=== PATIENT | male | born 1985 | race Caucasian/White ===

== ENCOUNTER 2023-11-09 14:07 | Outpatient (AMB) | payer MEDICARE, MEDICAID, SELFPAY ==
[2023-11-09 14:20] VITALS: BP 120/76; PULSE 88; TEMP 36.3; O2SAT 97; BMI 49.7
--- NOTE | 2023-11-09 14:20 | AM.OFFWIN_ITS ---
Intake Vital Signs 11/09/23 14:20 Height 5 ft 8 in Weight 148.325 kg BMI 49.7 BP 120/76 Blood Pressure Location Rt brachial Position Sitting Pulse 88 Pulse Source Pulse Oximeter Temp 97.3 F Pulse Oximetry (%) 97 Oxygen Delivery Method Room Air Intake Visit Reasons: [employer] WORK[employer]/cough and throwing up [phone] Intake Note: pt is here today for cough and throwing up started 4-5 days ago Allergies No Known Allergies Allergy (Verified 11/09/23 14:21) Do you need a note to return to daycare/school/sports/work: Yes HPI HPI Comments History of Present Illness Details 1455 38-year-old male hx of obesity who prese nts with fatigue, malaise, myalgias, cough, subjective fevers and chills that started 5 days ago not improving.+ sick contacts at home..? Denies chest pain, shortness of breath, nausea, vomiting, abdominal pain, headache vision change, dizziness, weakness, changes in bowel or urinary habits Physical exam benign History and physical exam concerning for viral illness versus bronchitis versus flu versus COVID versus RSV vs sinusitis ( most likely)? Unlikely pneumonia, ACS, dissection, pulmonary embolism, acute respiratory distress Plan at this time viral testing will discharge patient home with atbx for suspected sinusitis .? Educated patient on diagnosis and treatment plan, answered all question, patient verbalizes understanding.? At this time patient will be discharged home, advised to return with new or worsening symptoms.? Educated on worrisome signs and symptoms and when to return.? At this time I feel comfortable discharge home. Review of Systems Const Details: Constitutional : No Weight loss, + Fever, + Chills, + Fatigue, + Malaise ENT/Mouth : No sore throat, No Rhinorrhea Eyes: No Eye Pain, No Swelling, No Redness Cardiovascular : No Chest Pain, No SOB, No Dyspnea on Exertion, No Orthopnea, No Edema, No Palpitations Respiratory : + Cough, No Sputum, No Wheezing Gastrointestinal : No Nausea, No Vomiting, No Diarrhea, No Constipation, No abdominal Pain, No Hematochezia, No Melena Genitourinary : No Dysuria, No Urinary Frequency, No Hematuria, Musculoskeletal : No joint pain, No Myalgias, No Joint Swelling Skin : No Skin Lesions, No rash Neuro : No Weakness, No Numbness, No Dizziness, No Headache Psych : No Anxiety/Panic, No Depression All other systems reviewed and are negative All systems reviewed & are unremarkable except as noted in HPI and below Physical Exam Vital Signs: Last Vital Signs Temp 97.3 F 11/09/23 14:20 Pulse 88 11/09/23 14:20 BP 120/76 11/09/23 14:20 Pulse Ox 97 11/09/23 14:20 Oxygen Delivery Method Room Air 11/09/23 14:20 BMI result Body Mass Index 49.7 vss Appearance: Alert.? Oriented X3.? No acute distress.? Head: Normocephalic, atraumatic, no step-offs or deformities. Discomfort with palpation of facial sinuses Eyes: Pupils equal, round and reactive to light.? ENT: Pharynx normal.? Neck: Normal inspection.? Neck supple.? CVS: Normal heart rate and rhythm.? Pulses normal.? Respiratory: No respiratory distress.? Breath sounds normal.? Abdomen: Soft and nontender.? Skin: Skin warm and dry.? Normal skin color.? Normal skin turgor.? Extremities: No lower extremity edema.? No calf ttp. 5/5 strength to bilateral upper and lower extremities Neuro: Oriented X 3.? No motor deficit.? No sensory deficit. CN 2-12 intact Assessment & Plan Assessment & Plan (1) Sinusitis: Code(s): J32.9 - Chronic sinusitis, unspecified Plan Take your medications as prescribed. If you were prescribed antibiotics today, it is important that you take your medication to their entirety, do not skip any doses, do not finish them early. Follow-up with your primary care provider this week. Return to the emergency department with new or worsening symptoms. Such as fevers, chills, chest pain, shortness of breath, nausea, vomiting, dizziness, headache, vision changes, lethargy In case of emergency call 911 Orders: Orders SARS-CoV2/FLU/RSV Today B34.9 - Viral infection, unspecified Medications: New prednisone 20 mg PO DAILY 5 tabs 0RF 5 days albuterol sulfate 90 mcg/actuation 2 puffs inhalation Q6H PRN 6.7 grams 0RF shortness of breath or wheezing ondansetron 4 mg PO Q8-12H PRN 14 tabs 0RF nausea and vomiting amoxicillin-pot clavulanate 875-125 mg 1 tab PO BID 20 tabs 0RF 10 days Coding Level of Care Code Est Pt Level 3 (97970) Diagnoses Sinusitis J32.9
== END 2023-11-09 14:57 | disposition home or self-care (01) ==
PROVIDERS: PCP Internal Medicine; Visit Provider Physician Assistant
DX: J32.9 Chronic sinusitis, unspecified (principal)
CPT/HCPCS: 99213

== ENCOUNTER 2023-11-09 16:14 | Outpatient (REF) | payer MEDICARE, MEDICAID, SELFPAY ==
[2023-11-09 17:09] LABS: Influenza A PCR NEGATIVE (Negative); Influenza B PCR NEGATIVE (Negative); Resp Syncy Virus RNA Qual PCR NEGATIVE (Negative); SARS COV2 PCR INHOUSE NEGATIVE (Negative)
== END 2023-11-09 16:15 | disposition home or self-care (01) ==
LOC: HO.HMGCLNP 16:14
PROVIDERS: Visit Provider Physician Assistant
DX: Z20.822 Contact with and (suspected) exposure to COVID-19 (principal)
CPT/HCPCS: 0241U

== ENCOUNTER 2025-11-17 12:16 | Outpatient (AMB) | payer MEDICARE, MEDICAID, SELFPAY ==
--- OUTSIDE RECORDS SUMMARY | 2025-11-15 16:00 | XMS_ITS | Encounter Summary ---
Author Organization [facility] Address [address] [place] [address] Care Team Providers Care Environmental Services Assistant Name Role Phone Chase Roberts MD Primary Care Provider [phone] Reason for Visit * Reason Comments Asthma Encounter Details Date Type Department Care Team (Latest Contact Info) Description 11/15/2025 4:00 PM EST Office Visit Pulmonology - [address] [place] [phone] Evelin Rivero, RENA [address] [place] [address] Moderate persistent asthma, uncomplicated (Primary Dx) Social History Tobacco Use Types Packs/Day Years Used Date Smoking Tobacco: Never Smokeless Tobacco: Never Alcohol Use Standard Drinks/Week Comments Not Currently 0 (1 standard drink = 0.6 oz pur e alcohol) Sex and Gender Information Value Date Recorded Sex Assigned at Not on file Legal Sex Male 11:13 PM EST Gender Identity Not on file Sexual Orientation Not on file documented as of this encounter Last Filed Vital Signs Vital Sign Reading Time Taken Comments Blood Pressure 132/84 11/15/2025 3:53 PM EST Pulse 85 11/15/2025 3:53 PM EST Temperature 37.1 C (98.7 F) 11/15/2025 3:53 PM EST Respiratory Rate 18 11/15/2025 3:53 PM EST Oxygen Saturation 97% 11/15/2025 3:53 PM EST Inhaled Oxygen Concentration - - Weight 151 kg (333 lb 12.8 oz) 11/15/2025 3:53 P M EST Height 172.7 cm (5' 8 ) 11/15/2025 3:53 PM EST Body Mass Index 50.75 11/15/2025 3:53 PM EST documented in this encounter Ordered Prescriptions Prescription Sig Dispense Quantity Refills Last Filled Start Date End Date albuterol HFA (Ventolin HFA) 90 mcg/actuation inhalerIndications: Moderate persistent asthma, uncomplicated Inhale 2 puffs by mouth every 6 (six) hours if needed for wheezing. 8.5 g 3 11/15/2025 fluticasone-umeclid inium-vilanterol (Trelegy Ellipta) 100-62.5-25 mcg inhalerIndications: Moderate persistent asthma, uncomplicated Inhale 1 puff (100 mcg total) by mouth 1 (one) time each day. 180 each 11 11/15/2025 documented in this encounter Plan of Treatment Upcoming Encounters Date Type Department Care Team (Late st Contact Info) Description 01/12/2026 3:30 PM EST Office Visit Adult Medicine [facility] [address] [place] [address] Chase Roberts MD [address] [place], [place] 01/15/2026 3:10 PM EST Office Visit Pulmonology - [place] [address] [facility] [address] [place] [phone] Evelin Rivero NP [address] [place] [phone] 02/27/2026 2:30 PM EDT Consult Bariatric Surgery - [place] [address] [facility] [address] [place] [phone] Rashad Marr MD [address] [place] [address] documented as of this encounter Visit Diagnoses Diagnosis Moderate persistent asthma, uncomplicated- Primary documented in this encounter Discontinued Medications Medication Sig Discontinue Reason Start Date End Da te albuterol HFA (PROAIR HFA ; PROVENTIL HFA ; VENTOLIN HFA) 90 mcg/actuation inhaler Inhale 2 puffs by mouth every 4 (four) hours if needed for wheezing. Reorder 09/07/2025 11/15/2025 Kevin Ellipta 100-62.5-25 mcg inhalerIndications:Moderat e persistent asthma, uncomplicated TAKE 1 PUFF BY MOUTH EVERY DAY Reorder 10/30/2025 11/15/2025 documented as of this encounter Care Teams Environmental Services Assistant Relationship Specialty Start Date End Date Chase Roberts MD [address] [place] [phone] PCP - General Internal Medicine 04/30/21 documented as of this encounter
[2025-11-17 12:23] VITALS: BMI 49.4
--- NOTE | 2025-11-17 12:23 | A.PHYSOV ---
Vital Signs 11/17/25 12:23 Height 5 ft 8 in Weight 325 lb BMI 49.4 Intake Visit Reasons: NPV [place] REF NUMBNESS + TINGLING LEFT ARM Intake Note: Patient is a 40 year old male here for a new patient office visit. Patient is here for numbness in tingling in his right arm. Procurement Officer Required: No Allergies No Known Allergies Allergy (Verified 11/17/25 12:25) HPI Comments Details: History of Present Illness The patient is a 40 year old male presenting with numbness and tingling in his left arm. The symptoms are located from his mid-arm down to his fingers and he is unsure of the onset date. He initially denied pain, describing the sensation only as tingling, but later stated that pain accompanies the numbness episodes. 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 Associated symptoms are negative for neck pain and shoulder pain, and he is unable to reproduce the symptoms with neck or shoulder movement. Previous x-rays of his arm were reported as normal. Patient denies any major pain but does report that the paresthesias are annoying. Past surgical history is significant for a left arm fracture repair with a screw, which occurred a long time ago after a fall. He also reports a recent incident where he twisted his left foot after a fall yesterday, but he was able to walk on it today without significant pain. I reviewed the referring provider's no prior to consultation. Pain Description - Location: The patient experiences symptoms from the mid-part of his left arm down to his fingers. - Quality: The primary symptom described is tingling and numbness. - Associated symptoms: He reports pain in his arm that occurs concurrently with the numbness. - Exacerbating factors: Symptoms are worse at night. Results - X-ray: Previous X-rays of the arm were reportedly normal. - Imaging: Prior imaging shows narrowing on the left side at C5-6. [facility] Surgical History H/O wrist surgery (Unknown) H/O sinus surgery (Unknown) Social History Alcohol intake: current Alcohol intake frequency: does not drink Patient Tobacco Use Status: Never used Tobacco Review of Systems Narrative Review of Systems - Neurological: Reports numbness and tingling in the left arm, extending from the mid-arm to the fingers. - Musculoskeletal: Denies neck pain and shoulder pain. Physical Exam Exam Exam: Physical Exam - Neck: No tenderness to palpation of the cervical spine. Negative Spurling's maneuver - Range of Motion: Full and painless range of motion of the cervical spine and left shoulder. Negative impingement testing - Neurological: Sensation is decreased to light touch throughout the left arm. 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 - Special Tests: Spurling's test of the cervical spine is negative. - Special Tests: Tinel's sign at the left wrist is positive. Vital Signs: BMI result Body Mass Index 49.4 Assessment & Plan Assessment & Plan (1) Cervical radiculopathy: Code(s): M54.12 - Radiculopathy, cervical region Category: Medical (2) Carpal tunnel syndrome: Code(s): G56.00 - Carpal tunnel syndrome, unspecified upper limb Category: Medical Qualifiers: Laterality: left Qualified Code(s): G56.02 - Carpal tunnel syndrome, left upper limb Plan Pain Management Plan Patient was informed and verbally consented to the use of an ambient scribe for clinic note documentation during this visit. 1. Left Upper Extremity Paresthesia The patient's symptoms of left arm numbness and tingling are of unclear etiology. Differential diagnosis includes cervical radiculopathy, given the known C5-C6 narrowing, though this is less likely due to the absence of neck pain and a negative Spurling's test. Shoulder pathology is also less likely given the painless range of motion. A peripheral nerve entrapment, such as in the wrist, remains a possibility. To further investigate the cause, an EMG will be ordered for the left upper extremity to assess for a pinched nerve. The decision was made to defer physical therapy until the results of the EMG are available. Discussion Notes I discussed with the patient that the origin of his left arm numbness and tingling is difficult to determine based on the current findings. I explained the possible causes, including a pinched nerve from his neck, a shoulder issue, or a pinched nerve in his wrist, like carpal tunnel. I advised him that although imaging shows some narrowing in his neck, the clinical exam does not strongly support this as the cause. I recommended proceeding with an EMG as an additional diagnostic test to evaluate for a pinched nerve in his arm or wrist. I clarified that more invasive procedures for his neck are not warranted at this time. The patient understood the rationale and consented to ordering the EMG, and we agreed to defer physical therapy until after the test results are available. Patient Instructions - We will order an EMG test for your left arm to find the cause of your numbness. - The testing facility will call you to schedule your appointment. - We will wait for the results of the EMG before deciding on any other treatments, like physical therapy. - For your foot, you can apply ice to help with any discomfort. Orders: Orders NE electromyogram (EMG) Today G56.02 - Carpal tunnel syndrome, left upper limb NE nerve conduction velocity Today G56.02 - Carpal tunnel syndrome, left upper limb Coding Level of Care Code New Pt Level 3 (42392) Diagnoses Cervical radiculopathy M54.12 Carpal tunnel syndrome of left wrist G56.02 Laterality: left
--- OUTSIDE RECORDS SUMMARY | 2025-11-17 14:16 | XMS_ITS | Encounter Summary ---
Author Organization [facility] Address [address] [place] [address] Care Team Providers Care Manager Forms Name Role Phone Chase Roberts MD Primary Care Provider [phone] Encounter Details Date Type Department Care Team (Late Contact Info) Description 10/17/2025 Results Follow-Up Adult Medicine [address] [phone] Tushar Mares PA [address] [place] [address] Social History Tobacco Use Types Packs/Day Years [...] on file documented as of this encounter Plan of Treatment Upcoming Encounters Date Type Department Care Team (Late st Contact Info) Description 01/12/2026 3:30 PM EST Office Visit Adult Medicine [address] [phone] Chase Roberts MD [address] [place] [address] 01/15/2026 3:10 PM EST Office Visit Pulmonology - [place] [address] [facility] [address] [place] [phone] Evelin Rivero NP [address] [place] [phone] 02/27/2026 2:30 PM EDT Consult Bariatric Surgery - [place] [address] [facility] [place] [phone] Rashad Marr MD [address] [place] [phone] documented as of this encounter Visit Diagnoses Not on filedocumented in this encounter Care Teams Manager Forms Relationship Specialty Start Date End Date Chase Roberts MD [address] [place] [phone] PCP - General Internal Medicine 04/30/21 documented as of this encounter
--- OUTSIDE RECORDS SUMMARY | 2025-11-17 14:16 | XMS_ITS ---
Author Name [facility] Organization Unknown Care Team Organization Name Specialty Phone Email Start Date End Da te [facility] 07/19/2025 [facility] Evelin Rivero Primary [facility] 10/07/2022 07/18/2024
--- OUTSIDE RECORDS SUMMARY | 2025-11-17 14:16 | XMS_ITS | Continuity of Care Document ---
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 Plan of Treatment Reminders Order Date Submit Date Provider Last Modified By Organization Details Last Modified Time Details Appointments Establish ed 15 2025 03:45P M Stefan Ralph, DO Not available Not available Not available Post Op 2025 02:45P M JAMES SR Not available Not available Not available Post Op 2025 03:15P M Stefan Ralph, DO Not available Not available Not available Lab None recorded. Referral None recorded. Procedures None recorded. Surgeries None recorded. Imaging None recorded. Medication Orders None recorded. Patient TargetsNo targets recorded. Patient Instructions Encounter Date Encounter Id Patient Instructions Last Modified By Organization Details Last Modified Time 11/10/2025 [id number] spirometry testing* JEFF Not available 11/13/2025 12:10:01 Reason for Referral None Reported. Results Created Date Observation Date Name Description Value Unit Range Abnormal Flag Note LastModifiedBy Organization Detail LastModifiedTime 10/11/20 25 10/09/2025 CT, sinus es, w/o contr ast No observ ation record ed. [email or web address] [facility] [address] [facility] [address], [place], [address], 10/11/2025 09:22:57 11/10/20 jaswant metry testi ng* No observ ation record ed. Not Available 2024 12:08:07 Result Notes None recorded. Problems Name Problem SNOMED Code Status Onset Date Resolution Date Notes Provider Name and Address Organization Details Recorded Time Nasal congestio n 41694199 Active 2017 Nasal congestion ; Note: Date Diagnosed: 06/24/2018 12:22 PM (R09.81) Not Available [facility] 4 02:17:30 Polyp of nasal cavity 966829954 Active 2017 Polyp of nasal cavity; Note: Date Diagnosed: 06/24/2018 12:22 PM (J33.0) Not Available [facility] 4 02:17:32 Obstructi ve sleep apnea syndrome 62553642 Active 2017 Obstructiv e sleep apnea (adult) (pediatric ); Note: Date Diagnosed: 06/24/2018 12:22 PM (G47.33) Stefan Ralph, [address],[place] [address], [place], [address] , [facility] 5 12:51:42 Simple obesity 390538502 Active 2017 Other obesity due to excess calories; Note: Date Diagnosed: 09/15/2018 3:45 PM (E66.09) Not Available [facility] 4 02:17:41 Uncomplic ated moderate persisten t asthma 981362873 Active 2017 Moderate persistent asthma, uncomplica reinaldo; Note: Date Diagnosed: 09/15/2018 3:24 PM (J45.40) Not Available [facility] 4 02:17:41 Eosinophi l count above reference range 906383241 Active 2018 Eosinophil ia; Note: Date Diagnosed: 01/17/2019 3:04 PM (D72.1) Not Available [facility] 4 02:17:13 Allergic rhinitis 25251331 Active 2019 Allergic rhinitis: Due to other allergen; Note: Date Diagnosed: 02/02/2020 2:51 PM (477.8) Allergic rhinitis: Due to other allergen; Note: Date Diagnosed: 12/08/2019 3:07 PM (477.8) ; Start Date : 12/08/2019 Allergic rhinitis: Due to other allergen; Note: Date Diagnosed: 12/01/2019 2:30 PM (477.8) ; Start Date : 12/01/2019 Allergic rhinitis: Due to other allergen; Note: Date Diagnosed: 11/17/2019 2:34 PM (477.8) ; Start Date : 11/17/2019 Allergic rhinitis: Due to other allergen; Note: Date Diagnosed: 11/10/2019 3:04 PM (477.8) ; Start Date : 11/10/2019 Allergic rhinitis: Due to other allergen; Note: Date Diagnosed: 10/25/2019 4:39 PM (477.8) ; Start Date : 10/25/2019 Allergic rhinitis: Due to other allergen; Note: Date Diagnosed: 10/20/2019 3:17 PM (477.8) ; Start Date : 10/20/2019 Allergic rhinitis: Due to other allergen; Note: Date Diagnosed: 09/22/2019 4:40 PM (477.8) ; Start Date : 09/22/2019 Allergic rhinitis: Due to other allergen; Note: Date Diagnosed: 09/15/2019 3:44 PM (477.8) ; Start Date : 09/15/2019 Allergic rhinitis: Due to other allergen; Note: Date Diagnosed: 08/18/2019 3:46 PM (477.8) ; Start Date : 08/18/2019 Allergic rhinitis: Due to other allergen; Note: Date Diagnosed: 07/14/2019 5:20 PM (477.8) ; Start Date : 07/14/2019 Allergic rhinitis: Due to other allergen; Note: Date Diagnosed: 06/23/2019 4:15 PM (477.8) ; Start Date : 06/23/2019 Allergic rhinitis: Due to other allergen; Note: Date Diagnosed: 06/01/2019 3:10 PM (477.8) ; Start Date : 06/01/2019 Allergic rhinitis: Due to other allergen; Note: Date Diagnosed: 04/14/2019 2:49 PM (477.8) ; Start Date : 04/14/2019 Allergic rhinitis: Due to other allergen; Note: Date Diagnosed: 03/31/2019 3:27 PM (477.8) ; Start Date : 03/31/2019 Allergic rhinitis: Due to other allergen; Note: Date Diagnosed: 03/17/2019 3:55 PM (477.8) ; Start Date : 03/17/2019 Allergic rhinitis: Due to other allergen; Note: Date Diagnosed: 01/10/2019 1:30 PM (477.8) ; Start Date : 01/10/2019 Perennial allergic rhinitis; Note: Date Diagnosed: 06/24/2018 12:22 PM (J30.89) ; Start Date : 06/24/2018 Not Available [facility] 4 02:17:58 Intellect ual disabilit y 445605445 Active 2024 Stefan Ralph, DO [address], [place], [address] , [place] [facility] 5 12:51:48 Allergic rhinitis caused by pollen 80933576 Active 2024 Stefan Ralph, DO [address], [place], [address] , [place] [facility] 12:51:54 Chronic sinusitis 47650806 Active 2024 Stefan Ralph, DO [address], [place], [address] , [place] [facility] 13:36:37 Polyp of nasal cavity and/or nasal sinus 044020175 Active 2024 Stefan Ralph, DO [address], [place], [place], [address] , [facility] - [facility] 13:36:43 Chronic rhinitis 44096323 Active 2024 Stefan Ralph, DO [address], [place], [address] , [facility] - [facility] 13:39:12 Hypertrop hy of nasal turbinate s 65562657 Active 2024 Stefan Ralph, DO [address], [place], [address] , [place] [facility] 5 17:00:58 Deviated nasal septum 590897423 Active 2024 Stefan Ralph, DO [address], [place], [address] , [place] [facility] 5 17:00:58 Perennial allergic rhinitis 709516521 Active 20[address] [place] [address], [place], [address] , [facility] 13:09:56 Problem Notes None recorded. Procedures Surgical History Date Name Laterality Status Provider Name and Address Organization Details Recorded Time Allergy Testing-Full completed [address], [address], [facility] 11/10/2025 14:38:[address] sinus - Xoran completed Stefan Ralph[address], [address], [facility] 11/01/2025 16:59:45 Nasal Endo DDx_DHL completed Stefan Ralph [address], [address], [facility] 10/03/2025 13:37:56 Imaging Results None recorded. Procedure Notes None recorded. Medical Equipment None Reported. Allergies No known drug allergies Medications Name Sig Start Date Stop Date Status Note LastModified by Organization Details LastModified Time amoxicill in 500 mg capsule TAKE 1 CAPSULE BY MOUTH THREE TIMES A DAY FOR 7 DAYS active Not Available Not Available No t Available Augmentin 875 mg-125 mg tablet 1 tablet by mouth 10/27 completed Medicati on ID: [id number] [place] By Name: Tila Quiros nd Name: [place] craig Send Method: E-Prescr ibed Sub s Allowed: subs OK Medic ationGen ericName : Augmenti n Not Available Not Available Not Available prednison e 10 mg tablet Take 4 tabs once a day for 3 days, then take 3 tabs for 3 days, 2 tabs for 3 days, 1 tab for 3 days 11/01 completed Not Available Not Available Not Available albuterol sulfate 2.5 mg/3 mL (0.083 %) solution for nebulizat ion 2017 active Medicati on ID: [id number] D uration Value: 30 Brand Name: albutero l sulfate Send Method: E-Prescr ibed Sub s Allowed: subs OK Speci al Instruct ion: VVN QID Medi cationGe nericNam e: albutero l sulfate Not Available Not Available Not Available cetirizin e 10 mg tablet TAKE 1 TABLET BY MOUTH EVERY DAY active Not Available Not Available No t Available Advair Diskus 100 mcg-50 mcg/dose powder for inhalatio n 09/15 completed Medicati on ID: [id number] R alf: () Brand Name: Advair Diskus S end Method: E-Prescr ibed Sub s Allowed: subs OK Medic ationGen ericName : Advair Diskus Not Available Not Available Not Available flunisoli de 25 mcg (0.025 %) nasal spray 2 spray 11/01 completed Medicati on ID: [id number] D uration Value: 90 Prescri bed By Name: Tila [place] nd Name: flunisol jim Send Method: E-Prescr ibed Sub s Allowed: subs OK Medic ationGen ericName : flunisol jim Not Available Not Available Not Available Advair Diskus 250 mcg-50 mcg/dose powder for inhalatio n 11/01 completed Medicati on ID: [id number] D uration Value: 30 Brand Name: Advair Diskus S end Method: E-Prescr ibed Sub s Allowed: subs OK Speci al Instruct ion: INL 1 PUFF ITL BID Medi cationGe nericNam e: Advair Diskus Not Available Not Available Not Available omeprazol e 20 mg capsule,d elayed release TAKE 1 CAPSULE BY MOUTH 1 TIME EACH DAY. active Not Available Not Available No t Available budesonid e 0.5 mg/2 mL suspensio n for nebulizat ion 1 vial 11/01 completed Medicati on ID: [id number] D uration Value: 30 Prescri bed By Name: Tila Hills nd Name: budesoni de Send Method: E-Prescr ibed Sub s Allowed: subs OK Speci al Instruct ion: use 1 vial each nostril twice daily Me dication GenericN kwabena: budesoni de Not Available Not Available Not Available monteluka st 10 mg tablet TAKE 1 TABLET BY MOUTH EVERYDAY AT BEDTIME active Not Available Not Available No t Available epinephri ne 0.3 mg/0.3 mL injection , auto-inje ctor 1 pen injector intramus cularly 2018 active Medicati on ID: [id number] D uration Value: 1 Prescri bed By Name: Tila [place] nd Name: jayant brittanie Send Method: E-Prescr ibed Sub s Allowed: subs OK Medic ationGen ericName : jayant gu Not Available Not Available Not Available Ventolin HFA 90 mcg/actua tion aerosol inhaler Inhale 2 puffs every 4 hours by inhalati on route as needed for 30 days. 2024 active Not Available Not Available Not Avai lable budesonid e 90 mcg/actua tion breath activated powder inhaler Inhale 2 puffs twice a day by inhalati on route for 30 days. 2024 active Not Available Not Available Not Avai lable Arnuity Ellipta 100 mcg/actua tion powder for inhalatio n Inhale 2 puff(s) twice a day by inhalati on route for 30 days. 2024 active Not Available Not Available Not Avai lable Trelegy Ellipta 100 mcg-62.5 mcg-25 mcg powder for inhalatio n TAKE 1 PUFF BY MOUTH EVERY DAY active Not Available Not Available No t Available Vitals Date Recorded Body height Body mass index (BMI) Body weight Oxygen saturation Heart rate Systolic And Diastolic Provider Name and Address Organization Details Last Updated DateTime 5 172.72 cm 45.6 kg/m2 018020. 71 g 97 % 96 /min 151/96 mm[Hg] [address] [address] [place] [facility] 5 13:18:21 Social History None recorded. Functional Status None recorded. Mental Status None recorded. Family History Nothing Reported. Medical History Condition Response Hyperlipidemia Y Migraines Y Nasal polyps Y Asthma Y Past Encounters Encounter ID Performer Location Encounter Start Date Encounter Closed Date Diagnosis/Indication Diagnosis SNOMED-CT Code Diagnosis ICD10 Code Diagnosis IMO Codes Diagnosis Note [id number] Stefan Ralph, DO [facility] [address] [place] [address] 11/01/2025 15:19:54 11/09/2025 12:51:23 Obstructive sleep apnea syndrome 70635622 G47.33 9866064 Chronic sinusitis 244268 00 J32.8 17427 Polyp of n gris cavity and/or nasal sinus 902206614 J33.9 90313 History of asthma 688245 007 Z87.09 323090 Chronic rhinitis 7661425 6 J31.0 Allergic rhinitis 813403 04 J30.9 Deviated nasal septum 12 7789212 J34.2 65278 Hypertroph y of nasal turbinates 27437674 J34.3 3480917 [id number] [facility] [address] [address] 11/10/2025 12:58:47 11/10/2025 14:39:29 Perennial allergic rhinitis 372377574 J30.89 695405 Health Concerns Section Related Observation LastModified by Organization Detai ls LastModified Time None Recorded Concern Status LastModified by Organization Details LastModified Time None Recorded Payers Encounter Date Sequence Insurance Name Policy Number Policy Gonzalez Covered Member ID Gonzalez Member ID Guarantor Name 11/10/2025 1 MEDIC[place]: [employer] Chase Hawk [id number] Chase Hawk 11/10/2025 2 [place] [facility] Chase Hawk [id number] Chase Hawk
--- OUTSIDE RECORDS SUMMARY | 2025-11-17 14:16 | XMS_ITS | Clinical Summary ---
Author Organization [facility] [address] [place] [address] [place] [phone] Phone Care Team Providers Care Barrel Maker Name Role Phone Chase Roberts MD Primary Care Provider [phone] Allergies Active Allergy Reactions Criticality Noted Date Comments Cat Dander 09/26/2011 Other Other 09/04/2024 SEASONAL ALLERGIES Pollen Extracts 09/26/2011 Medications triamcinolone (NASACORT) 55 mcg nasal inhaler Administer 2 sprays into each nostril 1 (one) time each day. Active tirzepatide, weight loss, (Zepbound) 2.5 mg/0.5 mL injection Use 2.5 mg once weekly 2 mL 12/08/19 25 Active montelukast (SINGULAIR) 10 mg tabletIndication s:Allergic rhinitis due to pollen,Moderate persistent asthma, uncomplicated TAKE 1 TABLET BY MOUTH EVERYDAY AT BEDTIME 90 tablet 3 06/05/20 25 Active omeprazole (PriLOSEC) [address] capsule Take 1 capsule (20 mg total) by mouth 1 (one) time each day. 90 capsule 1 10/05/20 25 Active cetirizine (ZyrTEC) 10 mg tabletIndication s:Allergic rhinitis due to pollen,Nasal polyp, unspecified TAKE 1 TABLET BY MOUTH EVERY DAY 90 tablet 1 10/30/20 25 Active fluticasone-umec lidinium-vilante rol (Trelegy Ellipta) 100-62.5-25 mcg inhalerIndicatio ns:Moderate persistent asthma, uncomplicated Inhale 1 puff (100 mcg total) by mouth 1 (one) time each day. 180 each 11 11/15/20 25 Active albuterol HFA (Ventolin HFA) 90 mcg/actuation inhalerIndicatio ns:Moderate persistent asthma, uncomplicated Inhale 2 puffs by mouth every 6 (six) hours if needed for wheezing. 8.5 g 3 11/15/20 25 2025 Active cetirizine (ZyrTEC) 10 mg tablet Take 1 tablet (10 mg total) by mouth 1 (one) time each day. 03/02/20 24 2024 Discontinued fluticasone-umec lidinium-vilante rol (Trelegy Ellipta) 100-62.5-25 mcg inhaler Inhale 1 puff (100 mcg total) by mouth 1 (one) time each day. 07/10/20 24 2024 Discontinued albuterol HFA (PROAIR HFA ; PROVENTIL HFA ; VENTOLIN HFA) 90 mcg/actuation inhaler Inhale 2 puffs by mouth every 4 (four) hours if needed for wheezing. 8.5 g 09/07/20 25 2024 Discontinued(R eorder) Trelegy Ellipta 100-62.5-25 mcg inhalerIndicatio ns:Moderate persistent asthma, uncomplicated TAKE 1 PUFF BY MOUTH EVERY DAY 60 each 2 10/30/20 25 2024 Discontinued(R eorder) Active Problems Problem Noted Date Diagnosed Date Prediabetes 12/28/2024 MORELOS (dyspnea on exertion) 09/04/2024 Morbid obesity with BMI of 50.0-59.9, adult 100 04/2024 Attention deficit hyperactivity disorder (ADHD) 08/18/2024 Intellectual disability 08/18/2024 Overview (08/18/2024): age equivalance of 6 Chest pain 04/20/2024 Exertional dyspnea 04/20/2024 Hiatal hernia 12/08/2023 Overview (08/18/2024): large Obstructive sleep apnea 03/01/2020 Overview (08/18/2024): RBMG Split Night Polysomnogram Date 12/10/2012. Wt 308#; BMI 50. Without PAP: SE 56 % SM 78 %; REM 15 % of this phase. RDI 73 (AHI 72), REM (RDI 98 - AHI 90), Central apneas 6; Obstructive apneas 5; Mixed apneas 0; hypopneas 120; RERAs 3; average oxygen saturation 94% (lowest 81%); PLMs 2. With PAP: SE 77 % SM 86 %; REM 47 % of this phase. On CPAP @ 11; RDI 1 (AHI 0.3), Central apneas 0; Obstructive apneas 0; Mixed apneas 0; hypopneas 1; RERAs 2; and, average oxygen saturation was 92%; PLMs ~2. [facility] Home Sleep Apnea Test: Date 09/13/2020; BMI 50; RDI 61, AHI 56; average oxygen saturation 97% (lowest 79% without saturations <88% for 5% or more of study) - Obstructive Sleep Apnea - severe; without sleep related hypoventilation by 2019 home sleep apnea test. Hyperlipidemia 10/12/2019 Anemia 11/06/2017 Allergic rhinitis 05/03/2010 Asthma 05/03/2010 Encounters Date Type Department Care Team Description 11/15/2025 4:00 PM EST Office Visit Pulmonology [facility] [address] [place] [phone] Evelin Rivero NP Moderate persistent asthma, uncomplicated (Primary Dx) 10/17/2025 Results Follow-Up Adult Medicine [address] [phone] Tushar Mares PA 09/26/2025 6:36 PM EDT - 09/26/2025 11:59 PM EDT Hospital Encounter [facility] [address] [place] [phone] Numbness and tingling in left arm Discharge Disposition: Home or Self Care 09/14/2025 11:30 AM EDT Office Visit Adult Medicine [address] [phone] Tushar Mares PA Numbness and tingling in left arm (Primary Dx); Need for prophylactic vaccination and inoculation against influenza 09/05/2025 4:25 PM EDT Office Visit Pulmonology - [place] [address] [place] [address] Evelin Rivero NP Obstructive sleep apnea (Primary Dx); Severe persistent asthma, unspecified whether complicated ([facility] V28); Morbid obesity with BMI of 50.0-59.9, adult ([facility] V24, [facility] V28) 09/01/2025 Nurse Triage Adult Medicine [address] [phone] Bre Otto [place] from Last 3 Months Immunizations Immunization Administration Dates Next Due DTP 12/10/1990, 7,1985,08/25,1985 Hepatitis B Pediatric (Enger ix B; Recombivax HB) to less than 20 yo 09/03/1998,03/27/1998,02/16/1998 Hib (HbOC) 09/26/1987 IPV Inactivated polio (Ipol) 6wks and older 09/26/1997,12/10/1990,1985,08/25,1985 Influenza Quadravalent, MDCK , 0.5ml, preservative free (Flucelvax) 6mo and older 10/22/2021,09/20/2020,10/12/2019 Influenza Quadravalent, MDCK , 0.5ml, with preservative (Flucelvax) 6mo and older 10/06/2017 Influenza trivalent, MDCK, 0 .5mL, preservative free (Flucelvax) 6mo and older 09/14/2025,12/23/2024 Influenza trivalent, with pr eservative (Fluzone; Afluria) 6mo and older 09/26/2014,09/26/2012,09/26/2011,09/26,10/12/2001,10/23/1999 MMR, measles mumps and rubel la Live (Priorix; M-M-R II) 12mo and older 02/16/1998,07/12/1986 Pneumococcal polysaccharide 23 valent (Pneumovax 23) 2yo and older 10/06/2017 Td Tetanus diptheria (Tdvax) 7yo and older 09/30/2002 Tdap Tetanus diptheria acell ular pertussis (Boostrix; Adacel) 7yo and older 12/23/2024,09/26/2014 Varicella live (Varivax) 12m o and older 05/26/2006 Surgical History Surgery Date Site/Laterality Comments SINUS SURGERY 01/29/2012 PROCEDURE: IA UNLISTED PROCEDURE ACCESSORY SINUSES; COMMENT: Dr. Alvarez WRIST SURGERY Right PROCEDURE: HISTORICAL WRIST SURGERY Medical History Medical History Date Comments Asthma DX:Asthma Mental retardation DX:Mental ret ardation; COMMENT: age equivalance of 6 Attention deficit disorder w ith hyperactivity(314.01) DX:Attention deficit disorde r with hyperactivity(314.01) Allergic rhinitis DX:Allergic rh initis Sleep apnea DX:Sleep apnea Family History Medical History Relation Name Comments Hypertension Maternal Grandmother [place] Asthma Mother iron deficient anemia Diabetes Mother's side 1 Other cancer Mother's side 2 breast, uter ine, stomach; no colon or prostate Migraines Sister Blindness Neg Hx Cataracts Neg Hx Glaucoma Neg Hx Macular degeneration Neg Hx Strabismus Neg Hx Relation Name Status Comments Maternal Grandmother Mother Mother's side 1 Mother's side 2 Sister Social History Tobacco Use Types Packs/Day Years Used Date Smoking Tobacco: Never Smokeless Tobacco: Never Tobacco Cessation:Counseling Given: Not Answered Alcohol Use Standard Drinks/Week Comments Not Currently 0 (1 standard drink = 0.6 oz pur e alcohol) Sex and Gender Information Value Date Recorded Sex Assigned at Not on file Legal Sex Male 11:13 PM EST Gender Identity Not on file Sexual Orientation Not on file Last Filed Vital Signs Vital Sign Reading [...] Mass Index 50.75 11/15/2025 3:53 PM EST Plan of Treatment Upcoming Encounters Date Type Department Care Team (Late st Contact Info) Description 01/12/2026 3:30 PM EST Office Visit Adult Medicine [facility] [address] [place] [address] Chase Roberts MD [address] [place] [phone] 01/15/2026 3:10 PM EST Office Visit Pulmonology - [place] [address] [facility] [address] [place] [phone] Evelin Rivero, RENA [address] [place] [phone] 02/27/2026 2:30 PM EDT Consult Bariatric Surgery - [place] [address] [facility] [address] [place] [phone] Rashad Marr MD [address] [place] [phone] Health Maintenance Due Date Last Done Comments HPV Vaccines (1 - 3-dose SCDM series) 2012 Pneumococcal Vaccine: Pediatrics (0 to 5 Years) and At-Risk Patients (6 to 49 Years) (2 of 2 - PCV) 10/06/2018 10/06/2017 HIV Screening 11/02/2022 Medicare Annual Wellness Visit 11/02/2022 Depression Screening 11/30/2024 10/01/2023 COVID-19 Vaccine ( season) 2025 04/05/2021 Social Influencers of Health Screening 12/23/2025 12/23/2024 Cholesterol Screening (Lipid Panel) 12/23/2029 12/23/2024, 09/12/2024, 04/11/2024, Additional history exists DTaP,Tdap,and Td Vaccines (9 - Td or Tdap) 12/23/2034 12/23/2024, 09/26/2014, 09/30/2002, Additional history exists RSV Immunization Adult Patients (1 - 1-dose 75+ series) 2060 HIB Vaccines Completed 09/26/1987 IPV Vaccines Completed 09/26/1997, 11/30, 1985, Additional history exists MMR Vaccines Completed 02/16/1998, 07/12/1986 Hepatitis B Vaccines Completed 09/03/1998, 03/27/1998, 02/16/1998 Varicella Vaccines Aged Out 05/26/2006 No longer eligible based on patient's age to complete this topic Hepatitis C Screening Completed 10/12/2014 Influenza Vaccine Completed 09/14/2025, , 10/22/2021, Additional history exists Hepatitis A Vaccines Aged Out No long er eligible based on patient's age to complete this topic Meningococcal ACWY Vaccine Aged Out N o longer eligible based on patient's age to complete this topic Meningococcal B Vaccine Aged Out No l onger eligible based on patient's age to complete this topic RSV Immunization Patients Under 20 months Aged Out No longer eligible based on patient's age to complete this topic Procedures Procedure Name Priority Date/Time Associated Diagnosis Comments MR CERVICAL SPINE WO CONTRAST Routine 09/26/2025 7:47 PM EDT Numbness and tingling in left arm LIPID PANEL WITH REFLEX TO DIRECT LDL Routine 12/23/2024 12:08 PM EST Routine history and physical examination of adult Hyperlipidemia, unspecified hyperlipidemia type DEPRESSION SCREENING Routine 10/01/2023 HEPATITIS C SCREENING Routine 10/12/2014 from Last 3 Months or Most Recently Relevant to Health Maintenance Results * MR Cervical Spine wo Contrast (09/26/2025 7:47 PM EDT) Anatomical Region Laterality Modality C-spine, Spine Magnetic Resonan ce 09/29/2025 12:2 4 PM EDT Impressions 09/29/2025 12:27 PM EDT Degenerative changes of the cervical spine, most prominent at C5-6 where uncovertebral spurring results in a moderate-severe left foraminal stenosis. -------- FINAL REPORT -------- Dictated By: Jeevan Wilkins Dictated Date: 09/29/2025 12:24 ET Assigned Physician: Jeevan Wilikns Reviewed and Electronically Signed By: Jeevan Wilkins Signed Date: 09/29/2025 12:27 ET Workstation ID: [id number] Transcribed By: Self Edit Transcribed Date: 09/29/2025 12:24 ET Narrative 09/29/2025 12:27 PM EDT PROCEDURE: MRI of the cervical spine without intravenous contrast. TECHNIQUE: Sagittal and axial multisequence MRI of the cervical spine without intravenous contrast administration. HISTORY: chronic left arm numbness/tingling, cervical stenosis COMPARISON: None. FINDINGS: There is a large mucous retention cyst in the left maxillary antrum and moderate mucous retention cysts along the floor the right maxillary antrum with a partially included in the [id number]. Small retrocerebellar cyst. Visible portions of the brain and skull base are otherwise unremarkable. Paraspinous soft tissues are normal. No concerning marrow infiltrative lesion. The cord is normal in caliber. No appreciable cord signal abnormality. Cervical disc levels: C2-3: Mild bilateral facet arthropathy. No spinal or foraminal stenosis. C3-4: Mild endplate irregularity mild bilateral facet arthropathy. No spinal or foraminal stenosis. C4-5: Mild endplate irregularity. Mild bilateral facet arthropathy. No spinal or foraminal stenosis. C5-6: Mild endplate irregularity. Minimal anterior endplate osteophytes. Small right and moderate left uncovertebral spurs. Minimal bilateral facet arthropathy. No spinal stenosis. Moderate-severe left foraminal stenosis. C6-7: Mild degenerative irregularity of the endplates and facet joints. No spinal or foraminal stenosis. C7-T1: Mild bilateral facet arthropathy without spinal or foraminal stenosis. Procedure Note Jeevan Wilkins MD - 09/29/2025 PROCEDURE: MRI of the cervical spine without intravenous contrast. TECHNIQUE: Sagittal and axial multisequence MRI of the cervical spinewithout intravenous contrast administration. HISTORY: chronic left arm numbness/tingling, cervical stenosis COMPARISON: None. FINDINGS: There is a large mucous retention cyst in the left maxillary antrum andmoderate mucous retention cysts along the floor the right maxillary antrumwith a partially included in the [id number]. Small retrocerebellarcyst. Visible portions of the brain and skull base are otherwiseunremarkable. Paraspinous soft tissues are normal. No concerning marrow infiltrative lesion. The cord is normal in caliber. No appreciable cord signal abnormality. Cervical disc levels: C2-3: Mild bilateral facet arthropathy. No spinal or foraminalstenosis. C3-4: Mild endplate irregularity mild bilateral facet arthropathy. Nospinal or foraminal stenosis. C4-5: Mild endplate irregularity. Mild bilateral facet arthropathy. Nospinal or foraminal stenosis. C5-6: Mild endplate irregularity. Minimal anterior endplate osteophytes.Small right and moderate left uncovertebral spurs. Minimal bilateralfacet arthropathy. No spinal stenosis. Moderate-severe left foraminalstenosis. C6-7: Mild degenerative irregularity of the endplates and facet joints.No spinal or foraminal stenosis. C7-T1: Mild bilateral facet arthropathy without spinal or foraminalstenosis. IMPRESSION: Degenerative changes of the cervical spine, most prominent at C5-6 whereuncovertebral spurring results in a moderate-severe left foraminalstenosis. -------- FINAL REPORT -------- Dictated By: Jeevan Wilkins Dictated Date: 09/29/2025 12:24 ET Assigned Physician: Jeevan Wilkins Reviewed and Electronically Signed By: Jeevan Wilkins Signed Date: 09/29/2025 12:27 ET Workstation ID: [id number] Transcribed By: Self Edit Transcribed Date: 09/29/2025 12:24 ET Tushar RAMIREZ IMG MRI PROCEDURES Janina l Result * Lipid panel with reflex to direct LDL (12/23/2024 12:08 PM EST) Cholesterol 167 0 - 200 mg/dL LAB CHEMISTRY METHOD 12/23/2024 2:47 PM EST [facility] Triglycerides 115 0 - 150 mg/dL LAB CHEMISTRY METHOD 12/23/2024 2:47 PM EST [facility] HDL 50 >=40 mg/dL LAB CHEMISTRY METHOD 12/23/2024 2:47 PM EST [facility] LDL Calculated 94 0 - 100 mg/dL LAB CHEMISTRY METHOD 12/23/2024 2:47 PM [facility] VLDL Cholesterol Saul 23 mg/dL LAB CHEMISTRY METHOD 12/23/2024 2:47 PM EST [facility] Non HDL Chol. (LDL+VLDL) 117 <145 mg/dL LAB CHEMISTRY METHOD 12/23/2024 2:47 PM [facility] Chol/HDL Ratio 3.3 0.0 - 4.4 LAB CHEMISTRY METHOD 12/23/2024 2:47 PM [facility] Blood Venous blood specimen / Unknown Venipuncture / Unknown 12/23/2024 12:08 PM EST 12/23/2024 12:08 PM EST Tushar RAMIREZ LAB BLOOD ORDERABLES Fi nal Result [facility] [address] [place] [address], * Depression Screening (10/01/2023) Pathologist [facility] Depression Screening abstracted Historical Provider HEALTH MAINTENANCE Final Result * Hepatitis C Screening (10/12/2014) [facility] Hepatitis C Screening abstracted Historical Provider HEALTH MAINTENANCE Final Result from Last 3 Months or Most Recently Relevant to Health Maintenance Insurance MEDICARE [place]ICAID [place] Care Teams Barrel Maker Relationship Specialty Start Date End Date Chase Roberts MD [address] [place] [phone] PCP - General Internal Medicine 04/30/21
--- OUTSIDE RECORDS SUMMARY | 2025-11-17 14:16 | XMS_ITS | Encounter Summary ---
Author Organization [facility] Address [address] [place] [address] Phone Care Team Providers Care Reversing Mill Roller Name Role Phone Jess Pereira MD Primary Care Provider [phone] Encounter Details Date Type Department Care Team (Late st Contact Info) Description 07/16/2017 Conversion Encounter [facility] [address] [place] [address] Social History Tobacco Use Types Packs/Day Years Used Date Smoking Tobacco: Never Assessed Sex and Gender Information Value Date Recorded Sex Assigned at Not on file Legal Sex Male 4:13 PM EDT Gender Identity Not on file Sexual Orientation Not on file documented as of this encounter Plan of Treatment Not on file documented as of this encounter Visit Diagnoses Not on filedocumented in this encounter Care Teams Reversing Mill Roller Relationship Specialty Start Date End Date Jess Pereira MD [address] [place] [address] PCP - General 07/10/17 documented as of this encounter
--- OUTSIDE RECORDS SUMMARY | 2025-11-17 14:16 | XMS_ITS | Continuity of Care Document ---
Author Organization [place] [facility], [facility] Address [address] [place] [address] Care Team Providers Care Transition Specialist Name Role Phone JOSEPH ROBERTS Primary Care Provider Assessment Encounter Date Assessment Date Assessment LastModified by Organization Details LastModified Time 10/03/2025 10/03/2025 Assessment: - Nasal congestion, bilateral. -Other chronic sinusitis, potential nasal polyposis - Allergic rhinitis. - Sleep apnea. - Asthma. Nasal endoscopy today showed right septal deflection, +4 turbinate hypertrophy with significant cyanotic edema of the nasal mucosa and turbinates with evidence of prior left-sided sinus surgery. Plan: -CT scan of the sinuses for further evaluation -Start prednisone orally to try to reduce inflammation get a baseline - He is advised to continue using oral antihistamines and nasal steroid sprays. - Allergy testing and potential restart of allergy injections will be discussed as a treatment option. - Return visit in 6 weeks for recheck [email or web address] Not available 10/03/2025 13:39:00 Plan of Treatment Reminders Order Date Submit Date Provider Last Modified By Organization Details Last Modified Time Details Appointments Establi shed 15 2025 03:45P Jonathan Ralph, DO Not available Not available Not available Post Op 2025 02:45P JAMES DOE Not available Not available Not available Post Op 2025 03:15P Jonathan Ralph, DO Not available Not available Not available Lab None recorde d. Referral None recorde d. Procedures allergy testing , skin prick (PROC) 2024 025 [email or web address] Not available 11/02/2025 10:36:51 intrade rmal allergy skin testing (PROC) [id number] [email or web address] Not available 11/02/2025 10:36:51 pulmona ry functio n test procedu re (PROC) 2024 025 kfiorentino Not available 11/02/2025 10:36:51 pulse oximetr y (PROC) 2024 025 kfiorentino Not available 11/02/2025 10:36:51 Surgeries None recorde d. Imaging CT, sinuses , w/o contras t - Chronic Sinusit is, Other 2024 JEFF [facility] [place], [address], [address], [place], [address], 10/11/2025 06:11:05 Medication Orders prednis one 10 mg tablet 2024 [email or web address] Not available 11/01/2025 16:20:58 Patient TargetsNo targets recorded. Patient Instructions Encounter Date Encounter Id Patient Instructions Last Modified By Organization Details Last Modified Time 10/03/2025 [id number] Continue using oral antihistamines and nasal steroid sprays as prescribed. Follow up in four to five weeks after completing the CT scan of the sinuses. Discuss allergy testing and potential allergy injections during the next visit. Consult Dr. Roberts for asthma medication refills. [email or web address] Not available 10/03/2025 13:36:48 Please note: Par ts of this encounter note have been generated by AI based on audio conversation. Patient consent was required prior to utilizing this technology. Content review was required prior to finalizing the note. [email or web address] Not available 10/03/2025 13:36:48 Reason for Referral None Reported. Results Created Date Observation Date Name Description Value Unit Range Abnormal Flag Note LastModifiedBy Organization Detail LastModifiedTime 10/11/20 25 10/09/2025 CT, sinus es, w/o contr ast No observ ation record ed. [email or web address] [facility] [address], [place], [address], 10/11/2025 09:22:57 11/10/20 jaswant metry testi ng* No observ ation record ed. [email or web address] Not Available 2024 12:08:07 Result Notes None recorded. Problems Name Problem SNOMED Code Status Onset Date Resolution Date Notes Provider Name and Address Organization Details Recorded Time Nasal congestio n 99811152 Active 2017 Nasal congestion ; Note: Date Diagnosed: 06/24/2018 12:22 PM (R09.81) Not Available [facility] 4 02:17:30 Polyp of nasal cavity 264163948 Active 2017 Polyp of nasal cavity; Note: Date Diagnosed: 06/24/2018 12:22 PM (J33.0) Not Available [facility] 4 02:17:32 Obstructi ve sleep apnea syndrome 74351934 Active 2017 Obstructiv e sleep apnea (adult) (pediatric ); Note: Date Diagnosed: 06/24/2018 12:22 PM (G47.33) Stefan Ralph, [address],[place] [address], [place], [address] , [facility] 5 12:51:42 Simple obesity 425040099 Active 2017 Other obesity due to excess calories; Note: Date Diagnosed: 09/15/2018 3:45 PM (E66.09) Not Available [facility] 4 02:17:41 Uncomplic ated moderate persisten t asthma 192013945 Active 2017 Moderate persistent asthma, uncomplica reinaldo; Note: Date Diagnosed: 09/15/2018 3:24 PM (J45.40) Not Available [facility] 4 02:17:41 Eosinophi l count above reference range 388574231 Active 2018 Eosinophil ia; Note: Date Diagnosed: 01/17/2019 3:04 PM (D72.1) Not Available [facility] 4 02:17:13 Allergic rhinitis 86740906 Active 2019 Allergic rhinitis: Due to other [...] ; Start Date : 06/24/2018 Not Available [facility] 4 02:17:58 Intellect ual disabilit y 463547878 Active 2024 Stefan Ralph, DO [address], [place], [address] , [place] [facility] 12:51:48 Allergic rhinitis caused by pollen 92843873 Active 2024 Stefan Ralph, DO [address], [place], [place], [address] , [place] - [facility] 12:51:54 Chronic sinusitis 83517768 Active 2024 Stefan Ralph, DO [address], [place], [address] , [place] [facility] 13:36:37 Polyp of nasal cavity and/or nasal sinus 438213009 Active 2024 Stefan Ralph, DO [address], [place], [address] , [place] [facility] 13:36:43 Chronic rhinitis 28834140 Active 2024 Stefan Ralph, DO [address], [place], [address] , [place] [facility] 13:39:12 Hypertrop hy of nasal turbinate s 81929975 Active 2024 Stefan Ralph, DO [address], [place], [address] , [place] - [facility] 17:00:58 Deviated nasal septum 401450090 Active 2024 Stefan Luisfgren, [address] [facility],[place] [address], [place], [address] , [facility] 5 17:00:58 Perennial allergic rhinitis 596699491 Active [address],[place] [address], [place], [address] , [facility] 5 13:09:56 Problem Notes None recorded. Procedures Surgical History Date Name Laterality Status Provider Name and Address Organization Details Recorded Time Allergy Testing-Full completed [address],[place] [address], [place], [address], [facility] 11/10/2025 14:38:56 CT sinus - Xoran completed Stefan Loree, [address], [address], [facility] 11/01/2025 16:59:45 5 Nasal Endo DDx_DHL completed Stefan Ralph[address],[place] [address], [place], [address], [facility] 10/03/2025 13:37:56 Imaging Results None recorded. [...] by mouth 10/27 completed Medicati on ID: [id number] P rescribe d By Name: Tial Quiros nd Name: [place] craig Send Method: [...] nebulizat ion 2017 active Medicati on ID: [id number] D uration Value: 30 Brand Name: albutero [...] inhalatio n 09/15 completed Medicati on ID: [id number] R alf: () Brand Name: Advair Diskus S end Method: E-Prescr ibed Sub s Allowed: subs OK Medic ationGen ericName : Advair Diskus Not Available Not Available Not Available flunisoli de 25 mcg (0.025 %) nasal spray 2 spray 11/01 completed Medicati on ID: [id number] D uration Value: 90 Prescri bed By Name: Tila [place] nd Name: flunisol jim Send Method: E-Prescr ibed Sub s Allowed: subs OK Medic ationGen ericName : flunisol jim Not Available Not Available Not Available Advair Diskus 250 mcg-50 mcg/dose powder for inhalatio n 11/01 completed Medicati on ID: [id number] D uration Value: 30 Brand Name: Advair [...] 1 vial 11/01 completed Medicati on ID: [id number] D uration Value: 30 Prescri bed By [...] intramus cularly 2018 active Medicati on ID: [id number] D uration Value: 1 Prescri bed By Name: Tila [place] nd Name: epinephr ine Send Method: E-Prescr ibed Sub s Allowed: subs OK Medic ationGen ericName : epinephr ine Not Available Not Available Not Available Ventolin [...] height Body mass index (BMI) Body weight Systolic And Diastolic Provider Name and Address Organization Details Last Updated DateTime 10/03/2025 172.72 cm 49.4 kg/m2 179811.52 g 130/84 mm[Hg] Kalli H[facility] 10/03/2025 13:24:20 Social History None recorded. Functional Status None recorded. Mental Status None recorded. Family History Nothing Reported. Medical History Condition Response Hyperlipidemia Y Migraines Y Nasal polyps Y Asthma Y Past Encounters Encounter ID Performer Location Encounter Start Date Encounter Closed Date Diagnosis/Indication Diagnosis SNOMED-CT Code Diagnosis ICD10 Code Diagnosis IMO Codes Diagnosis Note [id number] Stefan Ralph DO [facility] [address] [address] 10/03/2025 13:12:05 10/03/2025 13:38:23 Obstructive sleep apnea syndrome 86393172 G47.33 9345867 Chronic sinusitis 733717 00 J32.8 69202 Polyp of n gris cavity and/or nasal sinus 149966148 J33.9 34287 History of asthma 875698 007 Z87.09 986013 Chronic rhinitis 2453562 6 J31.0 Allergic rhinitis 281723 04 J30.9 Health Concerns Section Related Observation LastModified by Organization Detai ls LastModified Time None Recorded Concern Status LastModified by Organization Details LastModified Time None Recorded Payers Encounter Date Sequence Insurance Name Policy Number Policy Gonzalez Covered Member ID Gonzalez Member ID Guarantor Name 10/03/2025 1 [place]ICARE B[place]: [employer] Chase Hawk [id number] Chase Hawk 10/03/2025 2 [place]: [facility] Chase Hawk [id number] Chase Hawk Notes Date Note Type Note Provider Name and Address Organization Details Recorded Time 10/03/2025 text/html Record review: History of DONNA with oxygen desaturation to 81%, intellectual disability, ADHD, asthma, allergic rhinitis. Patient does take Zyrtec and fluticasone Chase Hawk is a 40-year-old male who presents for nasal congestion and drainage. He reports a history of allergies for several years, which have not improved with oral antihistamines or nasal sprays such as Flonase. He also has a history of sleep apnea and asthma, which he manages with an inhaler and a nebulizer at home during asthma attacks. He has previously undergone nasal surgery a few years ago, but details of the procedure are unclear. He denies recent imaging of the head or sinuses but mentions a prior MRI for arm numbness. He reports significant nasal stuffiness and drainage today, which has been persistent despite current treatments. Stefan Ralph DO [address] [place] [address],[facility] [address], [place], [address], [facility] 10/03/2025 13:39:35
--- OUTSIDE RECORDS SUMMARY | 2025-11-17 14:16 | XMS_ITS | Clinical Summary ---
Author Organization [facility] Address [address] [place] [address] Phone Care Team Providers Care Woolen Tester Name Role Phone Jess Pereira MD Primary Care Provider [phone] Immunizations Immunization Administration Dates Next Due DTP 12/10/1990, 7,1985,1984,1985 Hep B, ped/adol 09/03/1998,03/27/1998,02/16/1998 Hib (HbOC) 09/26/1987 IPV 09/26/1997, 1,1985,1984,1985 Influenza, injectable, trivalent 09/26/2002,09/30,10/23/1999 MMR 02/16/1998,07/12/1986 Td (adult) (MBL), 2 Lf tetan us toxoid, PF, adsorbed 09/30/2002 Varicella 05/26/2006 Family History Relation Name Status Comments Mother Alive Mother: ? Deafn ess Other 1 Family history of ADD/ADHD, Family history of Hypertension, Family history of Migraines, Family history of Asthma Other 2 Family history of ADD/ADHD, Family history of Hypertension, Family history of Migraines, Family history of Asthma Social History Tobacco Use Types Packs/Day Years Used Date Smoking Tobacco: Never Assessed Sex and Gender Information Value Date Recorded Sex Assigned at Not on file Legal Sex Male 4:13 PM EDT Gender Identity Not on file Sexual Orientation Not on file Plan of Treatment Health Maintenance Due Date Last Done Comments DTaP,Tdap,and Td Vaccines (6 - Tdap) 10/01/2002 09/30/2002, 12/10/1990, 09/26/1987, Additional history exists Varicella Vaccines (2 of 2 - 13+ 2-dose series) 06/23/2006 05/26/2006 HPV Vaccines (1 - 3-dose SCDM series) 2012 Influenza Vaccines (#1) 2025 09/26/20, 10/12/2001, 10/23/1999 COVID-19 Vaccine (2024- season) 2025 HIB Vaccines Completed 09/26/1987 IPV Vaccines Completed 09/26/1997, 11/30, 1985, Additional history exists MMR Vaccines Completed 02/16/1998, 07/12/1986 Hepatitis B Vaccines Completed 09/03/1998, 03/27/1998, 02/16/1998 Hepatitis A Vaccines Aged Out No long er eligible based on patient's age to complete this topic Men B Vaccine Aged Out No longer elig ible based on patient's age to complete this topic Meningococcal Vaccine Aged Out No minda pamela eligible based on patient's age to complete this topic Pneumococcal Vaccine Aged Out No long er eligible based on patient's age to complete this topic Care Teams Woolen Tester Relationship Specialty Start Date End Date Jess Pereira MD [address] [place] [address] [place] [id number] PCP - General 07/10/17
--- OUTSIDE RECORDS SUMMARY | 2025-11-17 14:16 | XMS_ITS | Continuity of Care Document ---
Author Organization [place] [facility], [facility] Address [address] [place] [address] Care Team Providers Care Echocardiograph Technician Name Role Phone JOSEPH ULLOA Primary Care Provider Assessment Encounter Date Assessment Date Assessment LastModified by Organization Details LastModified Time 11/01/2025 11/01/2025 40-year-old male with a history of chronic nasal congestion, bilateral chronic sinusitis with prior sinus surgery, chronic allergic rhinitis. Prior nasal endoscopy today showed right septal deflection, +4 turbinate hypertrophy with significant cyanotic edema of the nasal mucosa and turbinates. On CT scan, patient has evidence of significant left septal deflection with lateralization of the left middle turbinate and bilateral inferior turban hypertrophy. He also has sinusitis of the maxillary and ethmoid sinuses with clear frontal and sphenoid sinuses Plan: - Allergy testing is still pending, will likely require SCIT - He is advised to continue using oral antihistamines and nasal steroid sprays. We reviewed the clinic findings today with the patient and had an extensive discussion on the natural history of their symptoms and the pathology causing them. 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 These findings were confirmed on Nasal Endoscopy and CT scan . Options were discussed, including conservative management, further medical management with topical, oral, or immunotherapy, and/or surgical intervention. Surgical Discussion: Surgical plan would consist of: Septoplasty, Bilateral Inferior Turbinate Submucosal Reduction, Bilateral Maxillary Antrostomy with Anterior Ethmoidectomy. Bilateral middle turbinectomy We discussed the risks, benefits, and alternatives of surgery, which include bleeding, infection, crusting, scarring, nasal septal perforation, saddle nose deformity, cranial base injury, CSF leak, orbital injury, vision loss/diplopia, need for postoperative splinting, or need for further procedures. The expected recovery period was reviewed, which will likely include postoperative debridements and splint removal. The patient understands this is a chronic condition and that any comorbid allergic/inflamma tory/immunologic components will also require ongoing management. After reviewing their options, the patient would like to pursue the surgical route. We will work on getting this scheduled at their earliest convenience. The patient understands they can reach out anytime to further clarify questions or concerns. CT/MRI Location & Date for Image guidance: [facility] on 11/01/25 [email or web address] Not available 11/01/2025 17:00:42 Plan of Treatment Reminders Order Date Submit Date Provider Last Modified By Organization Details Last Modified Time Details Appointments Establish ed 15 2025 03:45P Jonathan Ralph, DO Not available Not available Not available Post Op 2025 02:45P JAMES DOE Not available Not available Not available Post Op 2025 03:15P Jonathan Ralph, DO Not available Not available Not available Lab None recorded. Referral None recorded. Procedures None recorded. Surgeries septoplas ty (SURG) 2024 025 [email or web address] Not available 11/02/2025 06:45:07 submucous resection inferior turbinate (SURG) 2024 025 [email or web address] Not available 11/02/2025 06:45:07 endoscopy , nasal/sin us w/ partial ethmoidec july (SURG) 2024 025 [email or web address] Not available 11/02/2025 06:45:08 endoscopy , nasal/sin us, w/ maxillary antrostom y & tissue removal (SURG) 2024 025 [email or web address] Not available 11/02/2025 06:45:08 stereotac tic computer- assisted navigatio n (SURG) 2024 025 [email or web address] Not available 11/02/2025 06:45:08 Imaging None recorded. Medication Orders Ventolin HFA 90 mcg/actua tion aerosol inhaler 2024 025 JEFF [id number], [address] [place], [address], 11/01/2025 16:35:47 budesonid e 90 mcg/actua tion breath activated powder inhaler 2024 025 ccomi [facility][id number], [address] [place], [address], 11/17/2025 11:51:08 Patient TargetsNo targets recorded. Patient InstructionsNo instructions recorded. Reason for Referral None Reported. Results Created Date Observation Date Name Description Value Unit Range Abnormal Flag Note LastModifiedBy Organization Detail LastModifiedTime 10/11/2010/09/2025 CT, sinus es, w/o contr ast No observ ation record ed. [email or web address] [facility] [address] [facility] [address], [place], [address], 10/11/2025 09:22:57 11/10/20 jaswant metry testi ng* No observ ation record ed. [email or web address] Not Available 2024 12:08:07 Result Notes None recorded. Problems Name Problem SNOMED Code Status Onset Date Resolution Date Notes Provider Name and Address Organization Details Recorded Time Nasal congestio n 17324693 Active 2017 Nasal congestion ; Note: Date Diagnosed: 06/24/2018 12:22 PM (R09.81) Not Available [facility] 4 02:17:30 Polyp of nasal cavity 255334497 Active 2017 Polyp of nasal cavity; Note: Date Diagnosed: 06/24/2018 12:22 PM (J33.0) Not Available [facility] 4 02:17:32 Obstructi ve sleep apnea syndrome 82938573 Active 2017 Obstructiv e sleep apnea (adult) (pediatric ); Note: Date Diagnosed: 06/24/2018 12:22 PM (G47.33) Stefan Ralph, DO [address] [facility] [address], [place], [address] , [facility] - [facility] 5 12:51:42 Simple obesity 533494529 Active 2017 Other obesity due to excess calories; Note: Date Diagnosed: 09/15/2018 3:45 PM (E66.09) Not Available [facility] 4 02:17:41 Uncomplic ated moderate persisten t asthma 394955437 Active 2017 Moderate persistent asthma, uncomplica reinaldo; Note: Date Diagnosed: 09/15/2018 3:24 PM (J45.40) Not Available [facility] 4 02:17:41 Eosinophi l count above reference range 834239360 Active 2018 Eosinophil ia; Note: Date Diagnosed: 01/17/2019 3:04 PM (D72.1) Not Available [facility] 4 02:17:13 Allergic rhinitis 81175196 Active 2019 Allergic rhinitis: Due to other [...] ; Start Date : 06/24/2018 Not Available [facility] 4 02:17:58 Intellect ual disabilit y 312599675 Active 2024 Stefan Ralph, DO [address] [place] [address],[place] [address], [place], [address] , [facility] - [facility] 5 12:51:48 Allergic rhinitis caused by pollen 34847128 Active 2024 Stefan Ralph DO [address] [facility],[place] [address], [place], [address] , [facility] 5 12:51:54 Chronic sinusitis 95082996 Active 2024 Stefan Ralph, DO [address], [place], [address] , [facility] - [facility] 13:36:37 Polyp of nasal cavity and/or nasal sinus 340960389 Active 2024 Stefan Ralph, DO [address] [facility] [address], [place], [address] , [facility] - [facility] [place] 13:36:43 Chronic rhinitis 33583824 Active 2024 Stefan Ralph, DO [address] [facility] [place] [address], [place], [address] , [facility] - [facility] [place] 13:39:12 Hypertrop hy of nasal turbinate s 60636598 Active 2024 Stefan Ralph DO [address] [facility],[place] [address], [place], [place], [address] , [facility] - [facility] 17:00:58 Deviated nasal septum 969057595 Active 2024 Stefan Ralph DO [address] [facility] [place] [address], [place], [place], [address] , [facility] - [facility] 17:00:58 Perennial allergic rhinitis 464082108 Active 2024 Mono Mahoney [address] [facility] [place] [address], [place], [address] , [facility] - [facility] 13:09:56 Problem Notes None recorded. Procedures Surgical History Date Name Laterality Status Provider Name and Address Organization Details Recorded Time Allergy Testing-Full completed Mono Mahoney [address] [facility] [address] [address], [place], [address], [facility] - [facility] 11/10/2025 14:38:56 CT sinus - Xoran completed Stefan Ralph DO [address] [facility] [place] [address], [place], [address], [facility] - [facility] 11/01/2025 16:59:45 Nasal Endo DDx_DHL completed Stefan Ralph, [address],[place] [address], [place], [address], [place] [facility] 10/03/2025 13:37:56 Imaging Results None recorded. [...] by mouth 10/27 completed Medicati on ID: [id number] P mercedesrirob d By Name: Tila Quiros nd Name: Augmenti n Send Method: E-Prescr ibed Sub s Allowed: [...] nebulizat ion 2017 active Medicati on ID: [id number] D uration Value: 30 Brand Name: albutero [...] inhalatio n 09/15 completed Medicati on ID: [id number] R alf: () Brand Name: Advair Diskus S end Method: E-Prescr ibed Sub s Allowed: subs OK Medic ationGen ericName : Advair Diskus Not Available Not Available Not Available flunisoli de 25 mcg (0.025 %) nasal spray 2 spray 11/01 completed Medicati on ID: [id number] D uration Value: 90 Prescri bed By Name: Tila [place] nd Name: flunisol jim Send Method: E-Prescr ibed Sub s Allowed: subs OK Medic ationGen ericName : flunisol jim Not Available Not Available Not Available Advair Diskus 250 mcg-50 mcg/dose powder for inhalatio n 11/01 completed Medicati on ID: [id number] D uration Value: 30 Brand Name: Advair [...] 1 vial 11/01 completed Medicati on ID: [id number] D uration Value: 30 Prescri bed By [...] intramus cularly 2018 active Medicati on ID: [id number] D uration Value: 1 Prescri bed By Name: Tila [place] nd Name: danier brittanie Send Method: E-Prescr ibed Sub s [...] Available Not Available No t Available Vitals None Recorded Social History None recorded. Functional Status None recorded. Mental Status None recorded. Family History Nothing Reported. Medical History Condition Response Hyperlipidemia Y Migraines Y Nasal polyps Y Asthma Y Past Encounters Encounter ID Performer Location Encounter Start Date Encounter Closed Date Diagnosis/Indication Diagnosis SNOMED-CT Code Diagnosis ICD10 Code Diagnosis IMO Codes Diagnosis Note [id number] Stefan Ralph DO [facility] [address] [address] 10/03/2025 13:12:05 10/03/2025 13:38:23 Obstructive sleep apnea syndrome 62314341 G47.33 5411616 Chronic sinusitis 535881 00 J32.8 70661 Polyp of n gris cavity and/or nasal sinus 119386223 J33.9 31538 History of asthma 143770 007 Z87.09 192279 Chronic rhinitis 1159296 6 J31.0 Allergic rhinitis 155801 04 J30.9 [id number] Stefan Ralph DO [facility] [address] [address] 11/01/2025 15:19:54 11/09/2025 12:51:23 Obstructive sleep apnea syndrome 78455847 G47.33 1187165 Chronic sinusitis 127631 00 J32.8 91195 Polyp of n gris cavity and/or nasal sinus 030760195 J33.9 09468 History of asthma 599248 007 Z87.09 156984 Chronic rhinitis 0080388 6 J31.0 Allergic rhinitis 504788 04 J30.9 Deviated nasal septum 12 4588156 J34.2 77888 Hypertroph y of nasal turbinates 61947089 J34.3 [id number] Health Concerns Section Related Observation LastModified by Organization Nereidamajo ls LastModified Time None Recorded Concern Status LastModified by Organization Details LastModified Time None Recorded Payers Encounter Date Sequence Insurance Name Policy Number Policy Gonzalez Covered Member ID Gonzalez Member ID Guarantor Name 11/01/2025 1 [place]: [employer] Chase Hawk [id number] Chase Hawk 11/01/2025 2 [place] [facility] Chase Hawk [id number] Chase Hawk Notes Date Note Type Note Provider Name and Address Organization Details Recorded Time 11/01/2025 text/html Record review: History of DONNA with [...] which has been persistent despite current treatments. Interval history: A course of oral prednisone and had him continue his budesonide rinses twice daily. We also ordered allergy testing for him as well. He still feels minimal improvement with significant congestion, drainage, postnasal drip. Stefan Ralph, [address] [facility],[place] [address], [place], [address], [place] [facility] 11/01/2025 17:01:49
--- OUTSIDE RECORDS SUMMARY | 2025-11-17 14:16 | XMS_ITS | Data Portability ---
Author Organization [place] - [facility], Allergy Address [address] [place] [id number] Care Team Providers Care Stenotype Operator Name Role Phone JOSEPH ROBERTS Primary Care Provider [phone] Assessment Encounter Date Assessment Date Assessment LastModified [...] for recheck [email or web address] Not available 10/03/2025 13:39:00 11/01/2025 11/01/2025 40-year-old male with a history [...] improved with optimal medical therapy which include exterminator use of nasal saline, nasal steroid, and [...] 10:36:51 intrade rmal allergy skin testing (PROC) 2024 025 kfiorentino Not available 11/02/2025 10:36:51 pulmona ry functio n test procedu re (PROC) 2024 025 kfiorentino Not available 11/02/2025 10:36:51 pulse oximetr y (PROC) 2024 025 kfiorentino Not available 11/02/2025 10:36:51 Surgeries septopl asty (SURG) 2024 025 mcassesse Not available 11/02/2025 06:45:07 submuco us resecti on inferio r turbina te (SURG) 2024 025 mcassesse Not available 11/02/2025 06:45:07 endosco py, nasal/s inus w/ partial ethmoid ectomy (SURG) 2024 025 mcassesse Not available 11/02/2025 06:45:08 endosco py, nasal/s inus, w/ maxilla ry antrost daniel & tissue removal (SURG) 2024 025 mcassesse Not available 11/02/2025 06:45:08 stereot actic compute r-ben reinaldo navigat ion (SURG) 2024 025 mcassesse Not available 11/02/2025 06:45:[address], sinuses , w/o contras t - Chronic Sinusit is, Other 2024 [facility], [facility] [address], [place], [address], 10/11/2025 06:11:05 Medication Orders Ventoli n HFA 90 mcg/act uation aerosol inhaler 2024 025 JEFF [id number], [address] [place], [address], 11/01/2025 16:35:47 budeson jim 90 mcg/act uation breath activat ed powder inhaler 2024 025 ccomi [id number], [address] [place], [address], 11/17/2025 11:51:08 prednis one 10 mg tablet 2024 025 Not available 11/01/2025 16:20:58 Patient TargetsNo targets recorded. Patient Instructions Encounter Date Encounter Id Patient Instructions Last Modified By Organization Details Last Modified Time 10/03/2025 [id number] Continue using oral antihistamines and nasal steroid [...] the note. [email or web address] Not available 10/03/2025 13:36:48 11/10/2025 [id number] spirometry testing* JEFF Not available 11/13/2025 12:10:01 Reason for Referral None Reported. Results Created Date Observation Date Name Description Value Unit Range Abnormal Flag Note LastModifiedBy Organization Detail LastModifiedTime 10/11/2010/09/2025 CT, sinus es, w/o contr ast No observ ation record ed. [email or web address] [facility] [address] [address], [place], [address], 10/11/2025 09:22:57 11/10/20 jaswant metry testi ng* No observ ation record ed. Not Available 2024 12:08:07 Result Notes None recorded. Problems Name Problem SNOMED Code Status Onset Date Resolution Date Notes Provider Name and Address Organization Details Recorded Time Nasal congestio n 22262927 Active 2017 Nasal congestion ; Note: Date Diagnosed: 06/24/2018 12:22 PM (R09.81) Not Available [facility] 4 02:17:30 Polyp of nasal cavity 003690872 Active 2017 Polyp of nasal cavity; Note: Date Diagnosed: 06/24/2018 12:22 PM (J33.0) Not Available [facility] 4 02:17:32 Obstructi ve sleep apnea syndrome 00683468 Active 2017 Obstructiv e sleep apnea (adult) (pediatric ); Note: Date Diagnosed: 06/24/2018 12:22 PM (G47.33) Stefan Ralph, [address] [facility],[address] [address], [place], [address] , [facility] 5 12:51:42 Simple obesity 754733811 Active 2017 Other obesity due to excess calories; Note: Date Diagnosed: 09/15/2018 3:45 PM (E66.09) Not Available [facility] 4 02:17:41 Uncomplic ated moderate persisten t asthma 736987266 Active 2017 Moderate persistent asthma, uncomplica reinaldo; Note: Date Diagnosed: 09/15/2018 3:24 PM (J45.40) Not Available [facility] 4 02:17:41 Eosinophi l count above reference range 728015004 Active 2018 Eosinophil ia; Note: Date Diagnosed: 01/17/2019 3:04 PM (D72.1) Not Available [facility] 4 02:17:13 Allergic rhinitis 68305709 Active 2019 Allergic rhinitis: Due to other [...] ; Start Date : 06/24/2018 Not Available [facility] 02:17:58 Intellect ual disabilit y 517495781 Active 2024 Stefan Ralph, DO [address], [place], [address] , [place] [facility] 12:51:48 Allergic rhinitis caused by pollen 21027132 Active 2024 Stefan Ralph, DO [address], [place], [address] , [place] [facility] 12:51:54 Chronic sinusitis 60806882 Active 2024 Stefan Ralph, DO [address], [place], [address] , [place] [facility] 13:36:37 Polyp of nasal cavity and/or nasal sinus 802792437 Active 2024 Stefan Ralph, DO [address], [place], [address] , [place] [facility] 13:36:43 Chronic rhinitis 92861214 Active 2024 Stefan Ralph, DO [address], [place], [address] , [place] [facility] 13:39:12 Hypertrop hy of nasal turbinate s 35221661 Active 2024 Stefan Ralph, DO [address], [place], [address] , [place] [facility] 17:00:58 Deviated nasal septum 674277971 Active 2024 Stefan Ralph, DO [address], [place], [address] , [place] [facility] 17:00:58 Perennial allergic rhinitis 348985078 Active 2024 Mono Mahoney [address], [place], [address] , [place] - [facility] 13:09:56 Problem Notes None recorded. Procedures Surgical History Date Name Laterality Status Provider Name and Address Organization Details Recorded Time 5 Allergy Testing-Full completed Mono Denzel [address] [facility],[address], [address], [facility] 11/10/2025 14:38:[address] sinus - Xoran completed Stefan Loree, [address] [facility],[address], [address], [facility] 11/01/2025 16:59:45 5 Nasal Endo DDx_DHL completed Stefan Ralph, [address] [facility],[address], [address], [facility] 10/03/2025 13:37:56 Imaging Results None recorded. Procedure [...] by mouth 10/27 completed Medicati on ID: [id number] P rescribe d By Name: Tila Quiros nd Name: [...] nebulizat ion 2017 active Medicati on ID: [id number] D uration Value: 30 Brand Name: albutero [...] inhalatio n 09/15 completed Medicati on ID: [id number] R alf: () Brand Name: Advair Diskus S end Method: E-Prescr ibed Sub s Allowed: subs OK Medic ationGen ericName : Advair Diskus Not Available Not Available Not Available flunisoli de 25 mcg (0.025 %) nasal spray 2 spray 11/01 completed Medicati on ID: [id number] D uration Value: 90 Prescri bed By Name: Tila [place] nd Name: flunisol jim Send Method: E-Prescr ibed Sub s Allowed: subs OK Medic ationGen ericName : flunisol jim Not Available Not Available Not Available Advair Diskus 250 mcg-50 mcg/dose powder for inhalatio n 11/01 completed Medicati on ID: [id number] D uration Value: 30 Brand Name: Advair [...] 1 vial 11/01 completed Medicati on ID: [id number] D uration Value: 30 Prescri bed By [...] intramus cularly 2018 active Medicati on ID: [id number] D uration Value: 1 Prescri bed By Name: Tila [place] nd Name: jayant gu Send Method: E-Prescr ibed Sub s Allowed: [...] Updated DateTime 10/03/2025 172.72 cm 49.4 kg/m2 968725.52 g 130/84 mm[Hg] Kalli Hays [facility] 10/03/2025 13:24:20 Date Recorded Body height Body mass index (BMI) Body weight Oxygen saturation Heart rate Systolic And Diastolic Provider Name and Address Organization Details Last Updated DateTime 172.72 cm 45.6 kg/m2 836782. 71 g 97 % 96 /min 151/96 mm[Hg] Mono Mahoney [address] [place] [address], [address] [place] [address] [facility] 13:18:21 Social History None recorded. Functional Status None recorded. Mental Status None recorded. Family History Nothing Reported. Medical History Condition Response Hyperlipidemia Y Migraines Y Nasal polyps Y Asthma Y Past Encounters Encounter ID Performer Location Encounter Start Date Encounter Closed Date Diagnosis/Indication Diagnosis SNOMED-CT Code Diagnosis ICD10 Code Diagnosis IMO Codes Diagnosis Note [id number] Stefan Ralph DO [facility] [address] [address] 10/03/2025 13:12:05 10/03/2025 13:38:23 Obstructive sleep apnea syndrome 01214239 G47.33 9016635 Chronic sinusitis 058197 00 J32.8 39577 Polyp of n gris cavity and/or nasal sinus 908693420 J33.9 51434 History of asthma 551227 007 Z87.09 418249 Chronic rhinitis 4254434 6 J31.0 Allergic rhinitis 856445 04 J30.9 [id number] Stefan Ralph DO [facility] [address] [address] 11/01/2025 15:19:54 11/09/2025 12:51:23 Obstructive sleep apnea syndrome 81349005 G47.33 6047108 Chronic sinusitis 099601 00 J32.8 20870 Polyp of n gris cavity and/or nasal sinus 500388560 J33.9 65208 History of asthma 781841 007 Z87.09 533502 Chronic rhinitis 5206543 6 J31.0 Allergic rhinitis 312144 04 J30.9 Deviated nasal septum 12 7280027 J34.2 83474 Hypertroph y of nasal turbinates 54846701 J34.3 7807212 [id number] [facility] [address] [place] [address] [address] 11/10/2025 12:58:47 11/10/2025 14:39:29 Perennial allergic rhinitis 614525978 J30.89 656297 Health Concerns Section Related Observation LastModified by Organization Detai ls LastModified Time None Recorded Concern Status LastModified by Organization Details LastModified Time None Recorded Advance Directives Directive None Recorded Payers Insurance Date Sequence Insurance Name Policy Number Policy Gonzalez Covered Member ID Gonzalez Member ID Guarantor Name 10/03/2025 2 [place] [facility] Chase Hawk [id number] Chase Hawk 10/30/2025 1 [place] B[place] [facility] Chase Hawk [id number] Chase Hawk 10/30/2025 2 [place] [facility] Chase Hawk [id number] Chase Hawk Notes Date Note Type Note [...] has been persistent despite current treatments. Stefan Ralph, [address], [address], [facility] - [facility] 10/03/2025 13:39:35 11/01/2025 text/html Record review: History of DONNA [...] congestion, drainage, postnasal drip. Stefan Ralph, [address] [facility],[address] [address], [place], [address], [facility] - [facility] 11/01/2025 17:01:49
== END 2025-11-17 12:58 | disposition home or self-care (01) ==
LOC: HO.HPHYS 12:16
PROVIDERS: PCP Internal Medicine; Visit Provider Physician Assistant
DX: M54.12 Radiculopathy, cervical region (principal); G56.02 Carpal tunnel syndrome, left upper limb
CPT/HCPCS: 99203

== ENCOUNTER → 2025-11-17 12:16 | Outpatient (BNVA) | payer MEDICARE, MEDICAID, SELFPAY | PROVIDERS: PCP Internal Medicine; Visit Provider Physician Assistant | DX: G56.02 Carpal tunnel syndrome, left upper limb (principal); R20.0 Anesthesia of skin; R20.2 Paresthesia of skin | CPT/HCPCS: 99202 ==